=== PATIENT | female | born 1985 | race Caucasian/White ===

== ENCOUNTER 2017-02-16 23:10 | Emergency (ER) | payer SELFPAY ==
--- NOTE | 2017-02-17 00:04 | RAD ---
RADIOGRAPH CHEST 2 VIEWS: HISTORY: female with cough, fever, chills and chest congestion. (On [facility], the age is 21 years, but in [facility] ript, the age is 31 years). FINDINGS: There is no air space density, pulmonary edema, pleural effusion, pneumothorax, or cardiomegaly. IMPRESSION: No acute cardiopulmonary findings. wyatt POS: BRET
== END 2017-02-17 00:55 | disposition home or self-care (01) ==
LOC: ERS 23:10 → EDBD 23:10 → ERS 02-17 00:55
DX: J11.1 Influenza due to unidentified influenza virus with other respiratory manifestations (principal); F43.10 Post-traumatic stress disorder, unspecified; F17.210 Nicotine dependence, cigarettes, uncomplicated; J45.909 Unspecified asthma, uncomplicated
CPT/HCPCS: 71020